=== PATIENT | male | born 1990 | race Caucasian/White ===

== ENCOUNTER 2020-09-24 16:57 | Emergency (ER) | payer SELFPAY ==
[~2020-09-24] VITALS: Ht 177.8 cm; Wt 72.1 kg
[2020-09-24 17:06] VITALS: BP 109/73
[2020-09-24] MEDS ORDERED: TETanus/Pertussis (Acell)/Diphther VAC/PF (Tdap-Adult) 0.5ml syringe IMVAC ONE (18:45)
== END 2020-09-24 19:09 | disposition home or self-care (01) ==
LOC: ER 16:58
DX: S81.812A Laceration without foreign body, left lower leg, initial encounter (principal); W26.0XXA Contact with knife, initial encounter; Y93.89 Activity, other specified; Y92.89 Other specified places as the place of occurrence of the external cause; Y99.8 Other external cause status
CPT/HCPCS: 90471; 90715; 99283